=== PATIENT | male | born 1990 | race Two or more races ===

== ENCOUNTER 2020-10-19 21:40 | Emergency (ER) | payer SELFPAY ==
[~2020-10-19] VITALS: Ht 167.6 cm; Wt 81.6 kg
[2020-10-20 07:45] VITALS: BP 120/55
== END 2020-10-20 08:40 | disposition home or self-care (01) ==
LOC: ER 21:44
DX: T50.901A Poisoning by unspecified drugs, medicaments and biological substances, accidental (unintentional), initial encounter (principal); R11.2 Nausea with vomiting, unspecified; Y92.89 Other specified places as the place of occurrence of the external cause